=== PATIENT | female | born 2000 | race Two or more races ===

== ENCOUNTER 2020-10-13 19:46 | Emergency (ER) | payer BC, OTHER ==
--- NOTE | 2020-10-13 21:08 | EDM.PDOC ---
ED HPI GENERAL MEDICAL PROBLEM - General Chief Complaint: Lower Extremity Injury/Pain Stated Complaint: leg pain Time Seen by Provider: 10/13/20 19:59 Source of Information: Reports: Patient History Limitations: Reports: No Limitations - History of Present Illness INITIAL COMMENTS - FREE TEXT/NARRATIVE: Patient is a 20-year-old female who is complaining of having crampy pain that moves around both legs over the last several weeks and is often in the thighs or both lower legs but consistently has been having pain in her right calf for the last several days. This pain is worse with touching and worse with movement. She denies that the leg is swollen any change in warmth color any injury any numbness or paresthesias to her lower extremity. She is occasionally taking ibu profen for this without relief. She is not on control and is a cigarette smoker. She has not had similar symptoms in her past. She has been using heat without relief of the pain. Duration: Day(s): (two) Location: Reports: Lower Extremity, Right Quality: Reports: Ache, Dull Severity: Moderate Improves with: Reports: Rest Worsens with: Reports: Movement Context: Reports: Activity Associated Symptoms: Reports: No Other Symptoms. 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 Right Lower Leg Pain Score (Numeric/FACES): 5 - Related Data Allergies Allergy/AdvReac Type Severity Reaction Status Date / Time No Known Allergies Allergy Verified 10/13/20 20:04 Home Meds: Home Meds Cyclobenzaprine [Flexeril] 5 mg PO TID PRN #14 tab 10/13/20 [Rx] Past Medical History Genitourinary History: Reports: UTI, Recurrent Social & Family History - Tobacco Use Tobacco Use Status *Q: Current Every Day Tobacco User Years of Tobacco use: 3 Packs/Tins Daily: 0.4 - Caffeine Use Caffeine Use: Reports: Coffee, Energy Drinks, Soda, Tea - Recreational Drug Use Recreational Drug Use: No Review of Systems - Review of Systems Review Of Systems: Comprehensive ROS is negative, except as noted in HPI. ED EXAM, GENERAL - Physical Exam Exam: See Below Exam Limited By: No Limitations General Appearance: Alert, No Apparent Distress Head: Normocephalic Neck: Normal Inspection, Supple Respiratory/Chest: No Respiratory Distress GI/Abdominal: No Distention Back Exam: Normal Inspection Extremities: Normal Inspection, Normal Range of Motion, No Pedal Edema, Normal Capillary Refill, Jayme's Sign, Leg Pain. No: Pedal Edema Neurological: Alert, Oriented Psychiatric: Normal Affect, Normal Mood Skin Exam: Warm, Dry, Normal Color. No: Cool, Cyanosis Course - Vital Signs Text/Narrative:: Patient's lab work including her D-dimer are negative. I have reassured her this is not a blood clot in her leg. She is advised to continue using ibuprofen with meals and follow-up with her PCP orthopedic provider symptoms continue. I will give her prescription for Flexeril to use as needed. She is to return to emergency department symptoms are worse. She has agreed to quit smoking cigarettes. Last Recorded V/S: Last Vital Signs Temp 97.5 F 10/13/20 20:07 Pulse 62 10/13/20 20:07 Resp 20 10/13/20 20:07 BP 122/73 10/13/20 20:07 Pulse Ox 99 10/13/20 20:07 - Orders/Labs/Meds Labs: Laboratory Tests 10/13/20 10/13/20 10/13/20 Range/Units 20:22 20:22 20:22 WBC 6.12 (3.98-10.04) K/mm3 RBC 4.52 (3.98-5.22) M/mm3 Hgb 13.8 (11.2-15.7) gm/dl Hct 40.7 (34.1-44.9) % MCV 90.0 (79.4-94.8) fl MCH 30.5 (25.6-32.2) pg MCHC 33.9 (32.2-35.5) g/dl RDW Std Deviation 39.7 (36.4-46.3) fL Plt Count 275 (182-369) K/mm3 MPV 9.8 (9.4-12.3) fl Neutrophils % (Manual) 64 H (40-60) % Band Neutrophils % 1 (0-10) % Lymphocytes % (Manual) 27 (20-40) % Atypical Lymphs % 0 % Monocytes % (Manual) 8 (2-10) % Eosinophils % (Manual) 0 L (0.7-5.8) % Basophils % (Manual) 0 L (0.1-1.2) Platelet Estimate Adequate RBC Morph Comment Normal D-Dimer, Quantitative < 0.19 L (0.19-0.50) mg/L Sodium 141 (136-145) mEq/L Potassium 4.0 (3.5-5.1) mEq/L Chloride 107 (98-107) mEq/L Carbon Dioxide 24 (21-32) mEq/L Anion Gap 14.0 (5-15) BUN 10 (7-18) mg/dL Creatinine 0.8 (0.55-1.02) mg/dL Est Cr Clr Drug Dosing 100.10 mL/min Estimated GFR (MDRD) > 60 (>60) mL/min BUN/Creatinine Ratio 12.5 L (14-18) Glucose 96 (70-99) mg/dL Calcium 8.4 L (8.5-10.1) mg/dL Total Bilirubin 0.4 (0.2-1.0) mg/dL AST 17 (15-37) U/L ALT 21 (14-59) U/L Alkaline Phosphatase 51 (46-116) U/L Total Protein 7.5 (6.4-8.2) g/dl Albumin 4.0 (3.4-5.0) g/dl Globulin 3.5 gm/dL Albumin/Globulin Ratio 1.1 (1-2) Departure - Departure Time of Disposition: 21:07 Disposition: Home, Self-Care 01 Condition: Good Clinical Impression: Right leg pain - Discharge Information Instructions: Muscle Strain, [id number] Referrals: PCP,None [Primary Care Provider] - Additional Instructions: Flexeril as needed. Ibuprofen with meals. Return to ER if worse. Follow-up with PCP if not improving for possible orthopedic referral. Sepsis Event Note (ED) - Evaluation Sepsis Screening Result: No Definite Risk - Focused Exam Vital Signs: Vital Signs Temp Pulse Resp BP Pulse Ox 10/13/20 20:07 97.5 F 62 20 122/73 99
== END 2020-10-13 21:30 | disposition home or self-care (01) ==
LOC: JD.ED 19:46
DX: M79.661 Pain in right lower leg (principal); Z72.0 Tobacco use
CPT/HCPCS: 36415; 80053; 85007; 85027; 85379; 99283

== ENCOUNTER 2020-11-19 20:26 | Emergency (ER) | payer BC ==
[2020-11-19] MEDS ORDERED: Sodium Chloride 0.9% 10 ML Syringe FLUSH PRN (20:42)
--- NOTE | 2020-11-19 20:47 | EDM.PDOC ---
ED HPI GENERAL MEDICAL PROBLEM - General Chief Complaint: Cardiovascular Problem Stated Complaint: HEART FLUTTERING/LOW PULSE Time Seen by Provider: 11/19/20 20:37 Source of Information: Reports: Patient, RN Notes Reviewed History Limitations: Reports: No Limitations - History of Present Illness INITIAL COMMENTS - FREE TEXT/NARRATIVE: Patient is a 20-year-old female who presents to the ER today for the evaluation of her feelings of her heart fluttering and low heart rate. States that over the last few days, she has been having instances where she lays down, when she relaxes that she notices her heart rate seems to drop. She did take it by herself and noticed it to be under 50 bpm, and she did correlate this with a pulse oximeter. Patient states that times when her heart rate is low like this, she does feel lightheaded and/or dizzy. She states this is intermittent, does seem to come and go. No real triggers that cause this. States when she is up and moving around she feels fine. She has not had issues like this in the past. States that when she was a young child she was told she had a "heart murmur" but said that it had resolved. She has no regular care provider at this time. Patient denies any other sick-like symptoms, fever/chills, cough/shortness of breath, nausea/vomiting/diarrhea. She is further denying any sort of chest pain at this time. - Related Data Allergies Allergy/AdvReac Type Severity Reaction Status Date / Time No Known Allergies Allergy Verified 11/19/20 20:48 Home Meds: Home Meds . [No Known Home Meds] 11/19/20 [History] Past Medical History Cardiovascular History: Reports: Heart Murmur (states as a young child-but has resolved itself) Genitourinary History: Reports: UTI, Recurrent Social & Family History - Caffeine Use Caffeine Use: Reports: Coffee, Energy Drinks, Soda, Tea ED ROS GENERAL - Review of Systems Review Of Systems: Comprehensive ROS is negative, except as noted in HPI. ED EXAM, GENERAL - Physical Exam Exam: See Below Exam Limited By: No Limitations General Appearance: Alert, WD/WN, No Apparent Distress Respiratory/Chest: No Respiratory Distress, Lungs Clear, Normal Breath Sounds, No Accessory Muscle Use, Chest Non-Tender Cardiovascular: Normal Peripheral Pulses, Regular Rate, Rhythm, No Edema, No Murmur Peripheral Pulses: 2+: Radial (L), Radial (R) Extremities: Normal Inspection, Normal Capillary Refill Neurological: Alert, Oriented, Normal Cognition, No Motor/Sensory Deficits Psychiatric: Normal Affect, Normal Mood Skin Exam: Warm, Dry, Intact, Normal Color, No Rash #1 Interpretation EKG Date: 11/19/20 Time: 20:35 Rhythm: NSR Rate (Beats/Min): 74 [place]: Normal P-Wave: Present QRS: Normal ST-T: Normal QT: Normal Comparison: NA - No Prior EKG EKG Interpretation Comments: No obvious ischemia or acute ST changes noted, reviewed by myself and Dr. Lundberg. Course - Vital Signs Last Recorded V/S: Last Vital Signs Temp 97.9 F 11/19/20 20:37 Pulse 84 11/19/20 20:37 Resp 12 11/19/20 20:37 BP 130/73 11/19/20 20:37 Pulse Ox 96 11/19/20 20:37 - Orders/Labs/Meds Orders: Active Orders 24 hr Category Date Time Status EKG 12 Lead [EKG Documentation Completion] [RC] STAT Care 11/19/20 20:39 Active Peripheral IV Care [RC] . DIRECTED Care 11/19/20 20:43 Ordered Chest 1V Frontal [CR] Stat Exams 11/19/20 20:42 Ordered Sodium Chloride 0.9% [Saline Flush] Med 11/19/20 20:42 Ordered 10 ml FLUSH ASDIRECTED PRN Peripheral IV Insertion Adult [OM.PC] Routine Oth 11/19/20 20:42 Ordered Medication Orders Sodium Chloride (Sodium Chloride 0.9% 10 Ml Syringe) 10 ml FLUSH ASDIRECTED PRN PRN Reason: Keep Vein Open Last Admin: 11/19/20 21:06 Dose: 10 ml Documented by: AURE Labs: Laboratory Tests 11/19/20 11/19/20 Range/Units 20:40 20:40 WBC 6.88 (3.98-10.04) K/mm3 RBC 4.78 (3.98-5.22) M/mm3 Hgb 14.7 (11.2-15.7) gm/dl Hct 43.1 (34.1-44.9) % MCV 90.2 (79.4-94.8) fl MCH 30.8 (25.6-32.2) pg MCHC 34.1 (32.2-35.5) g/dl RDW Std Deviation 41.4 (36.4-46.3) fL Plt Count 282 (182-369) K/mm3 MPV 9.9 (9.4-12.3) fl Neut % (Auto) 64.6 (34.0-71.1) % Lymph % (Auto) 27.0 (19.3-51.7) % Mccreary % (Auto) 6.3 (4.7-12.5) % Eos % (Auto) 0.7 (0.7-5.8) Baso % (Auto) 0.4 (0.1-1.2) % Neut # (Auto) 4.44 (1.56-6.13) K/mm3 Lymph # (Auto) 1.86 (1.18-3.74) K/mm3 Mccreary # (Auto) 0.43 H (0.24-0.36) K/mm3 Eos # (Auto) 0.05 (0.04-0.36) K/mm3 Baso # (Auto) 0.03 (0.01-0.08) K/mm3 Sodium 140 (136-145) mEq/L Potassium 3.8 (3.5-5.1) mEq/L Chloride 103 (98-107) mEq/L Carbon Dioxide 27 (21-32) mEq/L Anion Gap 13.8 (5-15) BUN 7 (7-18) mg/dL Creatinine 0.8 (0.55-1.02) mg/dL Est Cr Clr Drug Dosing 100.10 mL/min Estimated GFR (MDRD) > 60 (>60) mL/min BUN/Creatinine Ratio 8.8 L (14-18) Glucose 114 H (70-99) mg/dL Calcium 9.0 (8.5-10.1) mg/dL Total Bilirubin 0.8 (0.2-1.0) mg/dL AST 15 (15-37) U/L ALT 16 (14-59) U/L Alkaline Phosphatase 53 (46-116) U/L Troponin I < 0.017 (0.00-0.056) ng/mL Total Protein 8.3 H (6.4-8.2) g/dl Albumin 4.5 (3.4-5.0) g/dl Globulin 3.8 gm/dL Albumin/Globulin Ratio 1.2 (1-2) Meds: Medications Generic Name Dose Route Start Last Admin Trade Name Issac PRN Reason Stop Dose Admin Sodium Chloride 10 ml 11/19/20 20:42 11/19/20 21:06 Sodium Chloride 0.9% 10 Ml Syringe FLUSH 10 ml ASDIRECTED PRN Administration Keep Vein Open - Re-Assessments/Exams Free Text/Narrative Re-Assessment/Exam: 11/19/20 20:45 Patient presents to the ER for evaluation of her "heart fluttering and low heart rate". EKG done at time of triage demonstrates normal sinus rhythm with no acute ST change or abnormalities. We will go ahead and get some basic labs, and obtain a chest x-ray for further evaluation to make sure that she has no signs of gross cardiomegaly. 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 Patient verbalized understanding at this time. 11/19/20 21:10 CBC has resulted, and a chest x-ray has been taken. All of which are unremarkable, there is no gross cardiomegaly appreciated by myself or Dr. Lundberg on the chest x-ray. No other acute abnormalities on the chest x-ray. 11/19/20 21:15 Metabolic panel and troponin level have resulted and are both unremarkable for today's purposes as well I will go ahead and order a 48-hour Holter monitor and have her follow-up with Dr. Zaman in clinic for management. Departure - Departure Time of Disposition: 21:17 Disposition: Home, Self-Care 01 Condition: Good Clinical Impression: Palpitations with regular cardiac rhythm, Heart rate slow Instructions: Palpitations, [id number] Referrals: Dennise Zaman MD [Physician] - 1 Week (f/u for 48hr holter monitor: Palpitations and stated low heart rate.) Forms: ED Department Discharge Additional Instructions: You were seen in this ER tonight for feelings of your heart fluttering, and a low heart rate at home. While in the ER, no low heart rate was apparent at today's visit. Laboratory evaluation, EKG and chest x-ray all were unremarkable for today's purposes. For ongoing management you have been given a 48-hour Holter monitor for further evaluation of cardiac etiology. You will need to wear this monitor for the next 48 hours continuously, and follow-up with your care provider for the results of this test. A provider was selected for you, Dr. Zaman in our clinic will be the provider you will need to follow-up with. Please call [phone] to obtain an appointment in our family practice clinic with Dr. Zaman, sometime within the next week to 10 days. Do not hesitate to return to the ER at any time if symptoms change or worsen. Sepsis Event Note (ED) - Focused Exam Vital Signs: Vital Signs Temp Pulse Resp BP Pulse Ox 11/19/20 20:37 97.9 F 84 12 130/73 96 - My Orders Last 24 Hours: My Active Orders 11/19/20 20:39 EKG 12 Lead [EKG Documentation Completion] [RC] STAT 11/19/20 20:42 Chest 1V Frontal [CR] Stat Sodium Chloride 0.9% [Saline Flush] 10 ml FLUSH ASDIRECTED PRN Peripheral IV Insertion Adult [OM.PC] Routine 11/19/20 20:43 Peripheral IV Care [RC] . DIRECTED - Assessment/Plan Last 24 Hours: My Active Orders 11/19/20 20:39 EKG 12 Lead [EKG Documentation Completion] [RC] STAT 11/19/20 20:42 Chest 1V Frontal [CR] Stat Sodium Chloride 0.9% [Saline Flush] 10 ml FLUSH ASDIRECTED PRN Peripheral IV Insertion Adult [OM.PC] Routine 11/19/20 20:43 Peripheral IV Care [RC] . DIRECTED
--- NOTE | 2020-11-20 08:05 | CR ---
Chest: Portable view of the chest was obtained. Comparison: No prior chest imaging is available. Heart size and mediastinum are normal. Lungs are clear with no acute parenchymal change. Bony structures show nothing acute. Impression: 1. Nothing acute is seen on portable chest x-ray. Diagnostic code #1
== END 2020-11-19 21:37 | disposition home or self-care (01) ==
LOC: JD.ED 20:26
DX: R00.2 Palpitations (principal); R00.1 Bradycardia, unspecified
CPT/HCPCS: 36415; 71045; 71045-26; 80053; 84484; 85025; 93005; 93010; 93225; 93226; 99284; 99285-25

== ENCOUNTER 2021-02-08 20:11 | Emergency (ER) | payer BC ==
--- NOTE | 2021-02-08 20:27 | EDM.PDOC ---
ED HPI GENERAL MEDICAL PROBLEM - General Stated Complaint: LAC ON LIP Time Seen by Provider: 02/08/21 20:27 - History of Present Illness INITIAL COMMENTS - FREE TEXT/NARRATIVE: 20-year-old female presents the emergency room with a upper lip laceration. Patient states that early this morning patient fell going down some stairs she hit the area below her nose. She is not aware of any loose teeth. She is up-to-date on immunizations. She is got laceration underneath the middle of her nose. She contemplated back and forth whether it should come in to have this repaired or not. Middle Frontal Lip Pain Score (Numeric/FACES): 5 - Related Data Allergies Allergy/AdvReac Type Severity Reaction Status Date / Time No Known Allergies Allergy Verified 02/08/21 20:29 Home Meds: Home Meds cephALEXin [Keflex] 500 mg PO Q8H #21 cap 02/08/21 [Rx] Past Medical History - Past Health History Medical/Surgical History: Denies Medical/Surgical History Cardiovascular History: Reports: Heart Murmur Genitourinary History: Reports: UTI, Recurrent Social & Family History - Family History Family Medical History: No Pertinent Family History - Caffeine Use Caffeine Use: Reports: Coffee, Tea ED ROS GENERAL - Review of Systems Review Of Systems: See Below Constitutional: Reports: No Symptoms HEENT: Reports: No Symptoms Respiratory: Reports: No Symptoms Cardiovascular: Reports: No Symptoms GI/Abdominal: Reports: No Symptoms Musculoskeletal: Reports: No Symptoms Neurological: Reports: No Symptoms ED EXAM, GENERAL - Physical Exam Exam: See Below Exam Limited By: Uncooperative General Appearance: Alert (Cervantes's been getting worked), No Apparent Distress Eye Exam: Bilateral Eye: Normal Inspection Ears: Normal External Exam, Normal Canal, Hearing Grossly Normal, Normal TMs Nose: Normal Inspection, Normal Mucosa, No Blood Throat/Mouth: Normal Inspection, Normal Lips, Normal Teeth, Normal Gums, Normal Oropharynx, Normal Voice, No Airway Compromise, Other (No avulsed or loose teeth) Head: Atraumatic, Normocephalic, Other (Stellate laceration underneath her nose) Neck: Normal Inspection, Supple, Non-Tender. No: Lymphadenopathy (L), Lymphadenopathy (R), Tender Lateral, Tender Midline Respiratory/Chest: No Respiratory Distress, Lungs Clear, Normal Breath Sounds Cardiovascular: Normal Peripheral Pulses, No Edema GI/Abdominal: Normal Bowel Sounds, Soft, Non-Tender ED GENERAL MEDICAL PROCEDURES - Laceration/Wound Repair Middle Face Lac/wound length in cm: 2 Appearance: Subcutaneous Anesthetic Type: Local Local Anesthesia - Lidocaine (Xylocaine): 1% Plain Local Anesthetic Volume: 2cc Skin Prep: Saline Exploration/Debridement/Repair: Wound Explored, In a Bloodless Field, Explored to Base Suture Size: 4-0 # of Sutures: 4 (Approximated as it is an old injury) Suture Type: Nylon Tetanus Status Addressed: Yes (She is up-to-date) Complications: No Course - Vital Signs Last Recorded V/S: Last Vital Signs Temp 36.5 C 02/08/21 20: Pulse 83 02/08/21 20:21 Resp 16 02/08/21 20:21 BP 144/91 H 02/08/21 20: Pulse Ox 100 02/08/21 20:21 - Orders/Labs/Meds Meds: Medications Discontinued Medications Generic Name Dose Route Start Last Admin Trade Name Issac PRN Reason Stop Dose Admin Cephalexin Confirm 02/08/21 20:53 02/08/21 21:00 Cephalexin 500 Mg Cap Administered 02/08/21 20:54 500 mg Dose Administration 500 mg .ROUTE .STK-MED ONE Lidocaine HCl 10 ml 02/08/21 20:33 02/08/21 20:55 Lidocaine 1% 10 Ml Mdv INJECT 02/08/21 20:34 10 ml ONETIME ONE Administration Departure - Departure Time of Disposition: 21:11 Disposition: Home, Self-Care 01 Clinical Impression: Facial laceration - Discharge Information Referrals: PCP,None [Primary Care Provider] - Additional Instructions: Turn to the emergency room with any questions problems or worsening symptoms. Started on antibiotics called cephalexin take 1 3 times a day for 7 days. Your prescription has been sent electronically to the [place] pharmacy in the [facility]. Keep the wound absolutely clean and dry for the next 48 hours after 48 hours you can let water gently roll over the area but only for a few seconds then gently dab dry. Suture removal in 8 days. Follow-up in the hospital clinic for this. [phone] for an appointment. Sepsis Event Note (ED) - Evaluation Sepsis Screening Result: No Definite Risk - Focused Exam Vital Signs: Vital Signs Temp Pulse Resp BP Pulse Ox 02/08/21 20:21 36.5 C 83 16 144/91 H 100
[2021-02-08] MEDS ORDERED: Lidocaine 1% 10 ML MDV INJECT ONE (20:33)
[2021-02-08] MEDS ORDERED: Cephalexin 500 MG Cap ONE (20:53)
== END 2021-02-08 22:11 | disposition home or self-care (01) ==
LOC: JD.ED 20:11
DX: S01.81XA Laceration without foreign body of other part of head, initial encounter (principal); W10.9XXA Fall (on) (from) unspecified stairs and steps, initial encounter
CPT/HCPCS: 12011; 99282; A9270; 99283

== ENCOUNTER 2021-03-01 17:46 | Emergency (ER) | payer BC ==
--- NOTE | 2021-03-01 19:37 | EDM.PDOC ---
ED HPI GENERAL MEDICAL PROBLEM - General Chief Complaint: Chest Pain Stated Complaint: SOB CHEST PAIN Time Seen by Provider: 03/01/21 19:02 Source of Information: Reports: Patient History Limitations: Reports: No Limitations - History of Present Illness INITIAL COMMENTS - FREE TEXT/NARRATIVE: 20-year-old female presents the emergency department today with complaints of chest pain, shortness of breath and nausea. She states this started after eating supper tonight. She states that she had steak and potatoes for supper. She does not have any history of reflux. She denies any heartburn. She states that she felt that it may just be due to anxiety because her symptoms are resolving when she arrived in the emergency department however she is unsure. States that felt that her heart was racing after supper and could not get it to settle down. Denies any recent fever, chills, vomiting or diarrhea. She denies any cough, sore throat or headache. States she is otherwise healthy. Does admit to smoking marijuana daily. Admits to smoking daily for the past 5 years half pack a day of cigarettes. States she is otherwise healthy and does not take any prescription medications. Chest Pain Score (Numeric/FACES): 7 - Related Data Allergies Allergy/AdvReac Type Severity Reaction Status Date / Time No Known Allergies Allergy Verified 03/01/21 18:21 Home Meds: Home Meds . [No Known Home Meds] 03/01/21 [History] Past Medical History - Past Health History Medical/Surgical History: Denies Medical/Surgical History Cardiovascular History: Reports: Heart Murmur, Other (See Below) Other Cardiovascular History: palpitations. 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 one energy once a week - Alcohol Use Days Per Week of Alcohol Use: 2 Number of Drinks Per Day: 5 Total Drinks Per Week: 10 - Recreational Drug Use Recreational Drug Use: Yes Drug Use in Last 12 Months: Yes Recreational Drug Type: Reports: Marijuana/Hashish ED ROS GENERAL - Review of Systems Review Of Systems: Comprehensive ROS is negative, except as noted in HPI. ED EXAM, GENERAL - Physical Exam Exam: See Below Exam Limited By: Uncooperative General Appearance: Alert, WD/WN, Anxious Ears: Normal External Exam, Hearing Grossly Normal Nose: Normal Inspection Throat/Mouth: Normal Inspection, Normal Lips, Normal Voice, No Airway Compromise Head: Atraumatic, Normocephalic Neck: Normal Inspection, Supple Respiratory/Chest: No Respiratory Distress, Lungs Clear, Normal Breath Sounds, No Accessory Muscle Use, Chest Non-Tender Cardiovascular: Normal Peripheral Pulses, Regular Rate, Rhythm, No Edema, No Murmur Peripheral Pulses: 2+: Radial (L), Radial (R) GI/Abdominal: Normal Bowel Sounds, Soft, Non-Tender, No Distention (Female) Exam: Deferred Rectal (Female) Exam: Deferred Back Exam: Normal Inspection Extremities: Normal Inspection Neurological: Alert, Oriented, Normal Cognition Psychiatric: Normal Affect, Normal Mood Skin Exam: Warm, Dry, Intact, Normal Color, No Rash Lymphatic: No Adenopathy #1 Interpretation EKG Date: 03/01/21 Time: 18:23 Rhythm: NSR Rate (Beats/Min): 90 Voca: Normal P-Wave: Present QRS: Normal ST-T: Normal QT: Normal EKG Interpretation Comments: Per Dr. Goyal interpretation: Sinus rhythm at 90 bpm; RSR prime wave in [id number] variant; early R wave transitionconsider septal hypertrophy; left atrial hypertrophy Course - Vital Signs Text/Narrative:: As stated above, patient presents with chest pain, shortness of breath and nausea that occurred just after eating supper this evening. Physical exam is essentially unremarkable. Patient is hemodynamically stable. Patient states that her chest discomfort and shortness of breath is resolving now that she has been in the emergency department. Will obtain lab studies to include a CBC, CMP, magnesium and troponin level, and EKG. We will also obtain a urine test and once that is negative will obtain a chest x-ray. Last Recorded V/S: Last Vital Signs Temp 98.2 F 03/01/21 18:15 Pulse 118 H 03/01/21 18:15 Resp 22 H 03/01/21 18:15 BP 146/91 H 03/01/21 18:15 Pulse Ox 100 03/01/21 18:15 - Orders/Labs/Meds Orders: Active Orders 24 hr Category Date Time Status Chest 1V Frontal [CR] Stat Exams 03/01/21 20:04 Taken Labs: Laboratory Tests 03/01/21 03/01/21 03/01/21 Range/Units 19:15 19:30 19:30 WBC 10.33 H (3.98-10.04) K/mm3 RBC 4.35 (3.98-5.22) M/mm3 Hgb 13.5 (11.2-15.7) gm/dl Hct 40.4 (34.1-44.9) % MCV 92.9 (79.4-94.8) fl MCH 31.0 (25.6-32.2) pg MCHC 33.4 (32.2-35.5) g/dl RDW Std Deviation 42.4 (36.4-46.3) fL Plt Count 253 (182-369) K/mm3 MPV 9.7 (9.4-12.3) fl Neut % (Auto) 79.7 H (34.0-71.1) % Lymph % (Auto) 11.1 L (19.3-51.7) % [place] % (Auto) 7.7 (4.7-12.5) % Eos % (Auto) 0.6 L (0.7-5.8) Baso % (Auto) 0.2 (0.1-1.2) % Neut # (Auto) 8.23 H (1.56-6.13) K/mm3 Lymph # (Auto) 1.15 L (1.18-3.74) K/mm3 [place] # (Auto) 0.80 H (0.24-0.36) K/mm3 Eos # (Auto) 0.06 (0.04-0.36) K/mm3 Baso # (Auto) 0.02 (0.01-0.08) K/mm3 Sodium 136 (136-145) mEq/L Potassium 4.1 (3.5-5.1) mEq/L Chloride 103 (98-107) mEq/L Carbon Dioxide 26 (21-32) mEq/L Anion Gap 11.1 (5-15) BUN 13 (7-18) mg/dL Creatinine 0.9 (0.55-1.02) mg/dL Est Cr Clr Drug Dosing 88.97 mL/min Estimated GFR (MDRD) > 60 (>60) mL/min BUN/Creatinine Ratio 14.4 (14-18) Glucose 98 (70-99) mg/dL Calcium 8.7 (8.5-10.1) mg/dL Magnesium 2.1 (1.8-2.4) mg/dL Total Bilirubin 0.3 (0.2-1.0) mg/dL AST 29 (15-37) U/L ALT 19 (14-59) U/L Alkaline Phosphatase 42 L (46-116) U/L Troponin I < 0.017 (0.00-0.056) ng/mL Total Protein 7.3 (6.4-8.2) g/dl Albumin 3.7 (3.4-5.0) g/dl Globulin 3.6 gm/dL Albumin/Globulin Ratio 1.0 (1-2) Urine HCG, Qual Negative (NEGATIVE) - Re-Assessments/Exams Free Text/Narrative Re-Assessment/Exam: 03/01/21 20:27 Hematology reveals a WBC of 10.33, hemoglobin 13.5, hematocrit 40.4, platelet count 253 Chemistries unremarkable with a troponin of less than 0.017 03/01/21 21:00 Nothing acute is appreciated on portable chest x-ray. Patient will be discharged home with recommendations that she follow-up with her primary care pr eliot. Departure - Departure Time of Disposition: 21:05 Disposition: Home, Self-Care 01 Condition: Good Clinical Impression: Atypical chest pain Instructions: Nonspecific Chest Pain, Adult, [id number] Referrals: PCP,None [Primary Care Provider] - Forms: ED Department Discharge Additional Instructions: You were seen in the emergency department complaints of chest pain and shortness of breath that started after supper this evening. Full cardiac work-up was completed to include a chest x-ray, EKG and lab studies. These were all unremarkable. Your urine test was negative as well. Recommend that you obtain and follow-up with your primary care provider for further evaluation. Should your condition worsen or change, do not hesitate return to the emergency department Sepsis Event Note (ED) - Evaluation Sepsis Screening Result: No Definite Risk - Focused Exam Vital Signs: Vital Signs Temp Pulse Resp BP Pulse Ox 03/01/21 18:15 98.2 F 118 H 22 H 146/91 H 100 - My Orders Last 24 Hours: My Active Orders 03/01/21 20:04 Chest 1V Frontal [CR] Stat - Assessment/Plan Last 24 Hours: My Active Orders 03/01/21 20:04 Chest 1V Frontal [CR] Stat
--- NOTE | 2021-03-02 07:15 | CR ---
Chest: Portable view of the chest was obtained. Comparison: Prior chest x-ray of 11/19/20. Heart size and mediastinum are within normal limits. Lungs are clear with no acute parenchymal change. Bony structures show nothing acute. Impression: 1. Nothing acute is seen on portable chest x-ray. Diagnostic code #1
== END 2021-03-01 21:20 | disposition home or self-care (01) ==
LOC: JD.ED 17:46
DX: R07.89 Other chest pain (principal)
CPT/HCPCS: 36415; 71045; 71045-26; 80053; 81025; 83735; 84484; 85025; 93005; 93010; 99284; 99285-25

== ENCOUNTER 2021-04-12 18:01 | Emergency (ER) | payer SELFPAY ==
--- NOTE | 2021-04-12 19:26 | EDM.PDOC ---
ED HPI GENERAL MEDICAL PROBLEM - General Chief Complaint: Fever Stated Complaint: CHILLS NAUSEA HEADACHE Time Seen by Provider: 04/12/21 18:14 Source of Information: Reports: Patient History Limitations: Reports: No Limitations - History of Present Illness INITIAL COMMENTS - FREE TEXT/NARRATIVE: 20-year-old female presents the emergency department today with a 2-day history of fever, chills, fatigue and body aches. Patient states that she has been taking Tylenol and Aleve for the symptoms and she states that it has not helped much. She states that her roommate recently tested positive for influenza A and she suspects she may have that. She has not had her influenza vaccine. And patient states that she just had Covid in March 2021. She has not had her Covid vaccine either. Patient states she is otherwise healthy and does not take any prescription medications. She states she does smoke about a pack of cigarettes per week for the past several years. She does not have a primary care provider for which she sees. Generalized Pain Score (Numeric/FACES): 3 - Related Data Allergies Allergy/AdvReac Type Severity Reaction Status Date / Time No Known Allergies Allergy Verified 04/12/21 18:20 Home Meds: Home Meds Oseltamivir [Tamiflu] 75 mg PO BID #10 cap 04/12/21 [Rx] Past Medical History - Past Health History Medical/Surgical History: Denies Medical/Surgical History Cardiovascular History: Reports: Heart Murmur, Other (See Below) Other Cardiovascular History: palpitations. 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 Musculoskeletal History: Reports: None Neurological History: Reports: None Psychiatric History: Reports: Anxiety Endocrine/Metabolic History: Reports: None Hematologic History: Reports: None Immunologic History: Reports: None Oncologic (Cancer) History: Reports: None Dermatologic History: Reports: None - Infectious Disease History Infectious Disease History: Reports: Novel Coronavirus - Past Surgical History Head Surgeries/Procedures: Reports: None HEENT Surgical History: Reports: Oral Surgery Female Surgical History: Reports: None Social & Family History - Family History Family Medical History: No Pertinent Family History - Tobacco Use Tobacco Use Status *Q: Never Tobacco User - Caffeine Use Caffeine Use: Reports: Coffee, Energy Drinks Caffeine Use Comment: coffee one every third day. one energy once a week ED ROS GENERAL - Review of Systems Review Of Systems: Comprehensive ROS is negative, except as noted in HPI. ED EXAM, GENERAL - Physical Exam Exam: See Below Exam Limited By: No Limitations General Appearance: Alert, WD/WN, Mild Distress Ears: Normal External Exam, Hearing Grossly Normal Nose: Normal Inspection, Normal Mucosa Throat/Mouth: Normal Inspection, Normal Lips, Normal Voice, No Airway Compromise Head: Atraumatic Neck: Normal Inspection, Supple. No: Lymphadenopathy (L), Lymphadenopathy (R) Respiratory/Chest: No Respiratory Distress, Lungs Clear, Normal Breath Sounds, No Accessory Muscle Use, Chest Non-Tender Cardiovascular: Normal Peripheral Pulses, Regular Rate, Rhythm, No Edema, No Murmur GI/Abdominal: Normal Bowel Sounds, Soft, Non-Tender, No Distention (Female) Exam: Deferred Rectal (Female) Exam: Deferred Back Exam: Normal Inspection, Full Range of Motion Extremities: Normal Inspection Neurological: Alert, Oriented, Normal Cognition Psychiatric: Normal Affect, Normal Mood Skin Exam: Warm, Dry, Intact, Normal Color, No Rash Lymphatic: No Adenopathy Course - Vital Signs Text/Narrative:: As stated above, patient presents with flulike symptoms that started approximately 2 days ago that are progressively worsening today. Patient will be tested for influenza. She states she had Covid in March 2021. Physical exam is unremarkable. Lungs are clear heart rate is regular and abdomen is soft and nontender. I do not appreciate any lymphadenopathy. Last Recorded V/S: Last Vital Signs Temp 98.7 F 04/12/21 18:17 Pulse 93 04/12/21 18:17 Resp 16 04/12/21 18:17 BP 135/75 04/12/21 18:17 Pulse Ox 95 04/12/21 18:17 - Orders/Labs/Meds Labs: Laboratory Tests 04/12/21 Range/Units 18:40 Influenza Type A RNA Positive H (NEGATIVE) Influenza Type B RNA Negative (NEGATIVE) SARS-CoV-2 RNA (MEGAN) Negative (NEGATIVE) - Re-Assessments/Exams Free Text/Narrative Re-Assessment/Exam: 04/12/21 19:39 Patient's influenza A test is positive, influenza B and Covid testing is negative. I will discharge her to home with recommendations that she get plenty of rest and drink plenty of fluids and take Tylenol and ibuprofen as needed for fever or discomfort. I will send a prescription for Tamiflu 75 mg twice daily x5 days to [facility] in [place]. Departure - Departure Time of Disposition: 19:42 Disposition: Home, Self-Care 01 Condition: Good Clinical Impression: Influenza - Discharge Information Prescriptions: Oseltamivir [Tamiflu] 75 mg PO BID #10 cap Referrals: PCP,None [Primary Care Provider] - Forms: ED Department Discharge Additional Instructions: You were seen in the emergency department today with complaints of flulike symptoms and exposure to influenza A. While in the emergency department you were tested for influenza and Covid. Influenza A test did come back as positive, influenza B and Covid tests are negative. I have sent prescription for medication called Tamiflu to [facility] in [place]. This medication is to be taken twice daily for 5 days time. This will likely shorten the severity and length of time that you have symptoms of influenza. You do need to quarantine for 10 days time as this is highly contagious. Be sure to get plenty of rest and take plenty of fluids. You may take Tylenol 650 mg every 4 hours as needed for discomfort or ibuprofen 600 mg every 6-8 hours as needed for discomfort. Should your condition worsen or change, do not hesitate returning the emergency department. Sepsis Event Note (ED) - Evaluation Sepsis Screening Result: No Definite Risk - Focused Exam Vital Signs: Vital Signs Temp Pulse Resp BP Pulse Ox 04/12/21 18:17 98.7 F 93 16 135/75 95
[2021-04-12 19:27] LABS: CORONAVIRUS COVID-19 NAA NEGATIVE (NEGATIVE)
== END 2021-04-12 19:56 | disposition home or self-care (01) ==
LOC: JD.ED 18:01
DX: J11.1 Influenza due to unidentified influenza virus with other respiratory manifestations (principal); Z20.822 Contact with and (suspected) exposure to COVID-19
CPT/HCPCS: 0240U; 99283

== ENCOUNTER 2022-03-11 04:15 | Inpatient (IN) | payer MEDICAID, OTHER ==
[~2022-03-11 04:15] MED LIST: Lidocaine 1% 10 ML MDV ONE
[2022-03-11] MEDS ORDERED: Nalbuphine HCl 10 MG/ 1ML Amp IVPUSH PRN (04:47)
[2022-03-11] MEDS ORDERED: Ondansetron 4 MG/2 ML SDV IVPUSH PRN ×2 (04:47→22:45)
[2022-03-11] MEDS ORDERED: Sodium Chloride 0.9% 10 ML Syringe FLUSH PRN (04:47)
[2022-03-11] MEDS ORDERED: Oxytocin/Lactated Ringers 10 UNIT/1,000 ML BAG IV SCH ×2 (05:00→09:00)
[2022-03-11] MEDS: Lactated Ringers 1,000 ML IV SCH ×4 (05:57→22:55)
[2022-03-11] MEDS ORDERED: fentaNYL 100 MCG/2 ML SDV EPIDUR PRN (10:45)
[2022-03-11] MEDS ORDERED: Bupivacaine/fentaNYL/NS 100 ML Bag EPIDUR PRN (10:45)
[2022-03-11] MEDS ORDERED: ePHEDrine 50 MG/ML SDV IVPUSH PRN ×2 (10:45→23:26)
[2022-03-11] MEDS ORDERED: diphenhydrAMINE 50 MG/ML SDV IVPUSH PRN ×3 (10:45→23:26)
[2022-03-11] MEDS: Sodium Chloride 0.9% 10 ML Syringe FLUSH SCH (12:57)
[2022-03-11] MEDS ORDERED: Acetaminophen 325 MG Tab PO ONE (20:19)
[2022-03-11] MEDS ORDERED: Ampicillin 2 GM in Sodium Chloride 0.9% 100 ML IV SCH (20:30)
[2022-03-11] MEDS ORDERED: GENTAMICIN IV ONE (20:49)
[2022-03-11] MEDS ORDERED: SODIUM CHLORIDE 0.9% IV ONE (20:49)
[2022-03-11] MEDS ORDERED: Clindamycin Phosphate in D5W 900 MG in Premix Bag 1 BAG IV ONE ×2 (20:59)
[2022-03-11] MEDS ORDERED: Citric Acid/Sodium Citrate Solution 30 ML Cup PO ONE (21:00)
[2022-03-11] MEDS ORDERED: Metoclopramide 10 MG/2 ML SDV IVPUSH ONE (21:00)
[2022-03-11] MEDS ORDERED: Gentamicin 400 MG in Sodium Chloride 0.9% 100 ML IV SCH (21:00)
[2022-03-11] MEDS ORDERED: fentaNYL 100 MCG/2 ML SDV ONE (21:23)
[2022-03-11] MEDS ORDERED: Sodium Bicarbonate 8.4% 50 MEQ/50 ML SDV ONE (21:24)
[2022-03-11] MEDS ORDERED: Lidocaine 2% with EPINEPHrine 1:200,000 20 ML SDV ONE (21:24)
[2022-03-11] MEDS ORDERED: Morphine PF 10 MG/10 ML SDV ONE (21:24)
[2022-03-11] MEDS ORDERED: Lactated Ringers 1,000 ML ONE (21:43)
[2022-03-11] MEDS ORDERED: Bupivacaine 0.5% 30 ML SDV ONE (21:48)
[2022-03-11] MEDS ORDERED: Dexmedetomidine 200 MCG/2 ML SDV ONE (21:59)
[2022-03-11] MEDS ORDERED: Methylergonovine 0.2 MG/1 ML Amp ONE (22:05)
[2022-03-11] MEDS ORDERED: Ketorolac 30 MG/ML SDV ONE (22:23)
[2022-03-11] MEDS ORDERED: fentaNYL 100 MCG/2 ML SDV IVPUSH PRN (22:45)
[2022-03-11] MEDS ORDERED: Dextrose 5%-Lactated Ringers 1,000 ML IV SCH (23:26)
[2022-03-11] MEDS ORDERED: Acetaminophen/oxyCODONE 325-5 MG Tab PO PRN (23:26)
[2022-03-11] MEDS ORDERED: Naloxone 0.4 MG/ML SDV IVPUSH PRN (23:26)
[2022-03-11] MEDS ORDERED: Ondansetron 4 MG/2 ML SDV IV PRN (23:26)
[2022-03-12] MEDS: Ampicillin 2 GM in Sodium Chloride 0.9% 100 ML IV SCH ×4 (02:27→20:34)
[2022-03-12] MEDS: Clindamycin Phosphate in D5W 900 MG in Premix Bag 1 BAG IV SCH ×6 (04:33→21:19)
[2022-03-12] MEDS: Ketorolac 30 MG/ML SDV IVPUSH SCH ×3 (04:33→16:35)
[2022-03-12] MEDS: Prenatal Multivitamin with Calcium/Folic Acid/Iron Tab PO SCH (08:10)
[2022-03-12] MEDS: Sodium Chloride 0.9% 10 ML Syringe FLUSH SCH (09:18)
[2022-03-12] MEDS: Docusate Sodium 100 MG Cap PO PRN (14:56)
[2022-03-12] MEDS: Acetaminophen/oxyCODONE 325-5 MG Tab PO PRN (20:31)
[2022-03-12] MEDS ORDERED: Ibuprofen 600 MG Tab PO PRN (22:30)
[2022-03-13] MEDS: Docusate Sodium 100 MG Cap PO PRN (03:44)
[2022-03-13] MEDS: Prenatal Multivitamin with Calcium/Folic Acid/Iron Tab PO SCH (10:35)
[2022-03-13] MEDS: Acetaminophen/oxyCODONE 325-5 MG Tab PO PRN (11:42)
== END 2022-03-13 11:47 | disposition home or self-care (01) | DRG 788 ==
LOC: JD.OBCHECK 04:15 → JD.OB 04:24 → JD.OBCHECK 04:50 → JD.OB 04:51 → OBSVTOIN 22:00 → JD.OB 22:01
PROVIDERS: ADMIT Obstetrics & Gynecology; ATTEND Obstetrics & Gynecology
PROC: 10D00Z1 Extraction of Products of Conception, Low, Open Approach (ICD-10-PCS; principal; 2022-03-11)
DX: O41.1230 Chorioamnionitis, third trimester, not applicable or unspecified (principal); Z3A.39 39 weeks gestation of pregnancy; Z37.0 Single live birth; Z86.16 Personal history of COVID-19; Z87.891 Personal history of nicotine dependence
CPT/HCPCS: 36415; 51702; 59025; 59409; 85025; 85027; 86592; 86850; 86900; 86901; A9270-GY; J0290; J1580; J1885; J2210; J2274; J2405; J2590; J2765; J3010; J3490; J7120; J7121

== ENCOUNTER 2023-08-01 15:57 | Emergency (ER) | payer BC, OTHER ==
[2023-08-01 16:58] LABS: BASOPHILS PERCENT AUTO 0.3 % (0.0-1.0); EOSINOPHILS ABSOLUTE AUTO 0.1 K/mm3 (0.0-0.4); EOSINOPHILS PERCENT AUTO 0.7 % (0.0-6.0); HEMATOCRIT 39.9 % (37.0-47.0); HEMOGLOBIN 13.9 gm/dl (12.0-16.0); IMMATURE GRAN ABSOLUTE AUTO 0.09 K/mm3 (0.00-0.05); LYMPHOCYTES ABSOLUTE AUTO 2.2 K/mm3 (1.0-4.8); LYMPHOCYTES PERCENT AUTO 23.4 % (24.0-44.0); MEAN CORPUSCULAR HEMOGLOBIN 30.2 pg (28.0-32.0); MEAN CORPUSCULAR HGB CONC 34.8 g/dl (32.0-36.0); MEAN CORPUSCULAR VOLUME 86.6 fl (83.0-99.0); MEAN PLATELET VOLUME 9.9 fl (9.4-12.3); MONOCYTES ABSOLUTE AUTO 0.7 K/mm3 (0.0-0.8); MONOCYTES PERCENT AUTO 6.9 % (0.0-8.0); NEUTROPHILS ABSOLUTE AUTO 6.3 K/mm3 (1.8-7.7); NEUTROPHILS PERCENT AUTO 67.7 % (41.0-71.0); PLATELET COUNT,PLT 274 K/mm3 (150-400); RED BLOOD CELL COUNT 4.61 M/mm3 (4.10-5.30); WHITE BLOOD CELL COUNT,WBC 9.37 K/mm3 (3.9-11.3)
[2023-08-01] MEDS: LORazepam 1 MG Tab PO ONE (17:04)
[2023-08-01 17:23] LABS: ALANINE AMINOTRANSFERASE,ALT 22 U/L (14-59); ALBUMIN 4.1 g/dl (3.4-5.0); ALKALINE PHOSPHATASE 63 U/L (46-116); ANION GAP 14.1 (5-15); ASPARTATE AMNIOTRANSFERASE,AST 19 U/L (15-37); BILIRUBIN TOTAL 0.8 mg/dL (0.2-1.0); BLOOD UREA NITROGEN,BUN 18 mg/dL (7-18); BUN/CREATININE RATIO 25.7 (14-18); CALCIUM 9.5 mg/dL (8.5-10.1); CARBON DIOXIDE,CO2 26 mEq/L (21-32); CHLORIDE,CL 100 mEq/L (98-107); CREATININE 0.7 mg/dL (0.55-1.02); EST CRCL DRUG DOSING (CG) 111.51 mL/min; ESTIMATED GFR 124 mL/min (>60); GLUCOSE RANDOM 92 mg/dL (70-99); POTASSIUM,K 4.1 mEq/L (3.5-5.1); PROTEIN TOTAL,TP 8.2 g/dl (6.4-8.2); SODIUM,NA 136 mEq/L (136-145); TROPONIN I HIGH SENSITIVITY < 4 pg/mL (<=51)
[2023-08-01 18:08] LABS: APPEARANCE,URINE CLEAR (Clear); BILIRUBIN,URINE NEGATIVE (Negative); COLOR,URINE YELLOW (Yellow); GLUCOSE,URINE NEGATIVE (Negative); KETONES,URINE NEGATIVE (Negative); LEUKOCYTE ESTERASE,URINE NEGATIVE (Negative); NITRITE,URINE NEGATIVE (Negative); OCCULT BLOOD,URINE NEGATIVE (Negative); PROTEIN,URINE NEGATIVE (Negative); UROBILINOGEN,URINE 0.2 (0.2-1.0)
== END 2023-08-01 18:45 | disposition home or self-care (01) ==
LOC: JD.ED 15:57
DX: F41.9 Anxiety disorder, unspecified (principal); E66.9 Obesity, unspecified; Z86.16 Personal history of COVID-19; Z68.41 Body mass index [BMI] 40.0-44.9, adult
CPT/HCPCS: 36415; 80053; 81003; 84484; 85025; 93005; 99284; A9270

== ENCOUNTER 2024-11-10 09:55 | Emergency (ER) | payer BC | END 2024-11-10 11:43 | LOC: JD.ED 09:55 | DX: O99.891 Other specified diseases and conditions complicating pregnancy (principal); M79.604 Pain in right leg; E66.9 Obesity, unspecified; Z79.899 Other long term (current) drug therapy; Z86.16 Personal history of COVID-19; Z3A.31 31 weeks gestation of pregnancy | CPT/HCPCS: 93971-26-RT; 93971-RT; 99283 ==

== ENCOUNTER 2025-01-16 20:22 | Inpatient (IN) | payer BC ==
[2025-01-16] MEDS ORDERED: Sodium Chloride 0.9% 10 ML Syringe FLUSH PRN (21:06)
[2025-01-16] MEDS: Citric Acid/Sodium Citrate Solution 30 ML Cup PO ONE (21:26)
[2025-01-16] MEDS: Lactated Ringers 1,000 ML IV SCH (21:26)
[2025-01-16 21:33] LABS: MEAN PLATELET VOLUME 11.5 fl (9.4-12.3); NRBC ABSOLUTE 0.00 (0.00-0.02); NRBC PERCENT 0.0 % (0.0-0.2); PLATELET COUNT,PLT 187 K/mm3 (150-400); RED BLOOD CELL COUNT 4.43 M/mm3 (4.10-5.30); WHITE BLOOD CELL COUNT,WBC 10.20 K/mm3 (3.9-11.3)
[2025-01-16] MEDS ORDERED: Oxytocin/0.9 % Sodium Chloride 30 UNIT/500 ML BAG IV SCH (21:45)
[2025-01-16] MEDS ORDERED: Phenylephrine 1% 10 MG/ML SDV ONE (21:50)
[2025-01-16] MEDS ORDERED: Ondansetron 4 MG/2 ML SDV ONE (21:50)
[2025-01-16] MEDS ORDERED: Midazolam 1 MG/ML 2 ML SDV ONE (22:08)
[2025-01-16] MEDS ORDERED: fentaNYL 100 MCG/2 ML SDV IVPUSH PRN (22:15)
[2025-01-16] MEDS ORDERED: Ondansetron 4 MG/2 ML SDV IVPUSH PRN (22:15)
[2025-01-16] MEDS ORDERED: diphenhydrAMINE 50 MG/ML SDV IVPUSH PRN (22:15)
[2025-01-16] MEDS ORDERED: Oxytocin/0.9 % Sodium Chloride 30 UNIT/500 ML BAG IV ONE (22:15)
[2025-01-16] MEDS ORDERED: Lactated Ringers 1,000 ML ONE (22:16)
[2025-01-17] MEDS ORDERED: ePHEDrine 50 MG/ML SDV IVPUSH PRN (00:34)
[2025-01-17] MEDS ORDERED: Naloxone 0.4 MG/ML SDV IVPUSH PRN (00:34)
[2025-01-17] MEDS ORDERED: diphenhydrAMINE 50 MG/ML SDV IVPUSH PRN (00:34)
[2025-01-17] MEDS ORDERED: Ondansetron 4 MG/2 ML SDV IV PRN (00:34)
[2025-01-17] MEDS: Ketorolac 30 MG/ML SDV IVPUSH SCH ×2 (01:10→16:15)
[2025-01-17] MEDS ORDERED: Ketorolac 30 MG/ML SDV IVPUSH SCH (05:00)
[2025-01-17] MEDS ORDERED: Sodium Chloride 0.9% 10 ML Syringe FLUSH SCH (09:00)
[2025-01-17 16:41] LABS: MEAN PLATELET VOLUME 11.3 fl (9.4-12.3); NRBC ABSOLUTE 0.00 (0.00-0.02); NRBC PERCENT 0.0 % (0.0-0.2); PLATELET COUNT,PLT 161 K/mm3 (150-400); RED BLOOD CELL COUNT 3.90 M/mm3 (4.10-5.30); WHITE BLOOD CELL COUNT,WBC 11.62 K/mm3 (3.9-11.3)
== END 2025-01-19 13:05 | disposition home or self-care (01) | DRG 540 ==
LOC: EDSTATUS 20:42 → PREINTOOBSV 20:44 → EDSTATUS 20:44 → OBSVTOIN 21:00 → JD.OB 21:00
PROVIDERS: ADMIT Obstetrics & Gynecology; ATTEND Obstetrics & Gynecology
PROC: 10D00Z1 Extraction of Products of Conception, Low, Open Approach (ICD-10-PCS; principal; 2025-01-16 21:45)
DX: O48.0 Post-term pregnancy (principal); O34.211 Maternal care for low transverse scar from previous cesarean delivery; O99.214 Obesity complicating childbirth; Z86.16 Personal history of COVID-19; Z98.890 Other specified postprocedural states; Z79.899 Other long term (current) drug therapy; Z37.0 Single live birth; Z3A.40 40 weeks gestation of pregnancy; Z87.891 Personal history of nicotine dependence
CPT/HCPCS: 01961; 36415; 59025; 85027; 86592; 86850; 86900; 86901; 99140; A9270-GY; J0690; J1885; J2250; J2371; J2405; J2765; J7120; J7121; J7999

== ENCOUNTER 2025-02-10 19:22 | Emergency (ER) | payer BC ==
[2025-02-10] MEDS ORDERED: Naloxone 0.4 MG/ML SDV IVPUSH PRN (19:55)
[2025-02-10 19:59] LABS: BASOPHILS ABSOLUTE AUTO 0.0 K/mm3 (0.0-0.2); BASOPHILS PERCENT AUTO 0.2 % (0.0-1.0); EOSINOPHILS ABSOLUTE AUTO 0.0 K/mm3 (0.0-0.4); EOSINOPHILS PERCENT AUTO 0.2 % (0.0-6.0); IMMATURE GRAN ABSOLUTE AUTO 0.05 K/mm3 (0.00-0.05); IMMATURE GRAN PERCENT AUTO 0.6 % (0.0-0.4); LYMPHOCYTES ABSOLUTE AUTO 1.6 K/mm3 (1.0-4.8); LYMPHOCYTES PERCENT AUTO 19.6 % (24.0-44.0); MEAN PLATELET VOLUME 10.7 fl (9.4-12.3); MONOCYTES ABSOLUTE AUTO 0.6 K/mm3 (0.0-0.8); MONOCYTES PERCENT AUTO 7.2 % (0.0-8.0); NEUTROPHILS ABSOLUTE AUTO 6.0 K/mm3 (1.8-7.7); NEUTROPHILS PERCENT AUTO 72.2 % (41.0-71.0); NRBC ABSOLUTE 0.00 (0.00-0.02); NRBC PERCENT 0.0 % (0.0-0.2); PLATELET COUNT,PLT 266 K/mm3 (150-400); RED BLOOD CELL COUNT 4.67 M/mm3 (4.10-5.30); WHITE BLOOD CELL COUNT,WBC 8.33 K/mm3 (3.9-11.3)
[2025-02-10] MEDS ORDERED: Ondansetron 4 MG/2 ML SDV IVPUSH ONE (19:59)
[2025-02-10] MEDS: Ondansetron 4 MG/2 ML SDV IVPUSH ONE (20:01)
[2025-02-10 20:15] LABS: APPEARANCE,URINE CLEAR (Clear); GLUCOSE,URINE NEGATIVE (Negative); OCCULT BLOOD,URINE NEGATIVE (Negative)
[2025-02-10 20:23] LABS: LACTIC ACID 1.4 mmol/L (0.4-2.0)
[2025-02-10 20:29] LABS: A/G RATIO 1.0 (1-2); ALANINE AMINOTRANSFERASE,ALT 120.0 U/L (14-59); ASPARTATE AMNIOTRANSFERASE,AST 152.0 U/L (15-37); BILIRUBIN TOTAL 2.3 mg/dL (0.2-1.0); BLOOD UREA NITROGEN,BUN 14.0 mg/dL (7-18); CARBON DIOXIDE,CO2 27.0 mEq/L (21-32); CHLORIDE,CL 104.0 mEq/L (98-107); CREATININE 0.7 mg/dL (0.55-1.02); EST CRCL DRUG DOSING (CG) 110.55 mL/min; ESTIMATED GFR 123.0 mL/min (>60); GLUCOSE RANDOM 105.0 mg/dL (70-99); POTASSIUM,K 3.6 mEq/L (3.5-5.1); PROTEIN TOTAL,TP 7.4 g/dl (6.4-8.2); SODIUM,NA 143.0 mEq/L (136-145)
[2025-02-10] MEDS ORDERED: Sodium Chloride 0.9% 10 ML Syringe FLUSH PRN (21:21)
[2025-02-10] MEDS: Iopamidol 612 MG/ML 100 ML Bottle IVPUSH ONE (21:34)
[2025-02-10] MEDS: Sodium Chloride 0.9% 10 ML Syringe FLUSH PRN (21:34)
== END 2025-02-11 04:19 ==
LOC: JD.ED 19:22
DX: K80.20 Calculus of gallbladder without cholecystitis without obstruction (principal); K83.8 Other specified diseases of biliary tract; E80.6 Other disorders of bilirubin metabolism; E66.9 Obesity, unspecified; Z86.16 Personal history of COVID-19; Z68.41 Body mass index [BMI] 40.0-44.9, adult
CPT/HCPCS: 36415; 74177; 76705; 80053; 81001; 83605; 83690; 83735; 84703; 85025; 96361; 96365; 96375; 99285; J2270; J2405; J2543; J7030; Q9967